=== PATIENT | male | born 1965 | race Caucasian/White ===

== ENCOUNTER 2016-06-24 14:23 | Outpatient (CLI) | payer BC ==
[2014-07-31 19:36] VITALS: BP 149/87
[2016-06-24 15:08] LABS: BASOPHILS % 0.7 (0.0-1.5); EOSINOPHILS % 3.6 % (0.0-6.8); LYMPHOCYTES # 3.8 # k/uL (0.6-4.0); MEAN CORPUSCULAR HEMOGLOBIN 33.4 pg (28.0-34.0); MONOCYTES # 0.4 # k/uL (0.0-0.9); MONOCYTES % 3.9 % (0.0-11.0); NEUTROPHILS # 5.2 # k/uL (1.4-7.7)
[2016-06-24 15:31] LABS: eGFR (African) > 60; eGFR (Non-African) > 60
--- NOTE | 2016-06-24 20:33 | Diagnostic Imaging Report ---
[facility] [address] [facility].[address] [address] Report Submission Date: Jun 24, 2016 3:12:47 PM CDT Patient Study Name: RIAZ CERDA Date: Jun 24, 2016 2:44:25 PM CDT Modality Type: CR Gender: M Description: CHEST : 69 Institution: [facility] Physician: FIDE SCHWAB - OP Chest 2 views History: Chest pain and smoker Findings: Calcified granulomas are present. The lungs are otherwise clear without infiltrate pleural effusion. Heart size and pulmonary vascularity are normal. A mild mid to lower thoracic compression deformity is likely old. Impression: Old granulomatous disease and probably old thoracic compression deformity. Electronically signed on Jun 24, 2016 3:12:47 PM CDT by: Kamran ELIZABETH
== END 2016-06-24 14:24 ==
LOC: LAB 14:23
PROVIDERS: ATTEND Family Medicine
DX: R07.81 Pleurodynia (principal); R10.84 Generalized abdominal pain; E11.9 Type 2 diabetes mellitus without complications
CPT/HCPCS: 36415; 71020; 80053; 83036; 85025

== ENCOUNTER 2016-06-30 08:06 | Outpatient (CLI) | payer BC ==
[2014-07-31 19:36] VITALS: BP 149/87
--- NOTE | 2016-06-30 10:20 | Diagnostic Imaging Report ---
FIDE SCHWAB [facility] [address] [facility] [address] [address] Report Submission Date: Jun 30, 2016 9:13:17 AM CDT Patient Study Name: RIAZ CERDA Date: Jun 30, 2016 8:20:10 AM CDT Modality Type: US Gender: M Description: ABDOMEN COMPLETE : 69 Institution: [facility] Physician: FIDE SCHWAB Ultrasound abdomen complete History: Abdominal pain and nausea Findings: Visualized portions of the pancreas are normal. Moderately increased hepatic parenchymal echogenicity and decreased hepatic through transmission are observed. An indeterminate hypoechoic 3 x 3.1 x 2.7 cm right hepatic lesion is present. The abdominal aorta is normal in caliber. The inferior vena cava is not specifically imaged. A large immobile gallstone is present without gallbladder wall thickening or significant gallbladder distention. The common bile duct measures 3 mm in diameter proximally and is obscured distally. The right kidney measures 10.8 cm in length and the left kidney 10.9 cm. Renal echotexture and morphology is normal. The spleen measures 10.2 cm in maximal dimension. Impression: 1. Indeterminate 3.1 cm right hepatic lesion. Recommend triple phase contrast enhanced abdomen CT for further evaluation. 2. Moderate hepatic steatosis. 3. Large mobile gallstone. Electronically signed on Jun 30, 2016 9:13:17 AM CDT by: Kamran ELIZABETH
== END 2016-06-30 08:08 ==
LOC: RAD 08:06
PROVIDERS: ATTEND Family Medicine
DX: R10.84 Generalized abdominal pain (principal)
CPT/HCPCS: 76700

== ENCOUNTER 2016-07-05 05:46 | Outpatient (CLI) | payer BC ==
[2014-07-31 19:36] VITALS: BP 149/87
--- NOTE | 2016-07-05 14:23 | Diagnostic Imaging Report ---
FIDE SCHWAB - SANTY [facility] [address] [facility] [address] [place] [address]. [id number] Report Submission Date: Jul 05, 2016 8:27:04 AM CDT Patient Study Name: KORINA CERDA Date: Jul 05, 2016 7:33:50 AM CDT Modality Type: CT\SR Gender: M Description: CT ABD/PEL C : 69 Institution: [facility] Physician: FIDE SCHWAB - SANTY CT Abdomen/pelvis with contrast History: ABDOMINAL PAIN FOR MONTHS. HEPATIC LESION SEEN ON ULTRASOUND ON JUNE 30, 2016 Multiple grayscale and color Doppler images of the abdomen are submitted with reconstructions Findings: Comparison: Ultrasound abdomen dated June 30, 2016 Minimal left basilar scarring No free intraperitoneal air Degenerative changes are seen in the thoraco lumbar spine Hepatic steatosis is present. No intrahepatic biliary dilatation. There is a vague 3 x 2.7 cm heterogeneous hypodensity at the inferior right hepatic lobe on coronal series 601 image 64. Hyperdensity adjacent to the gallbladder is likely related to hepatic shunt vascularity The spleen demonstrates calcified granulomas. Pancreas, left adrenal gland are within normal limits. Right adrenal gland demonstrates a 2 cm adenoma Both kidneys enhance symmetrically, right renal inferior pole cyst is noted, no hydronephrosis bilaterally Left renal inferior pole small cysts is seen Left kidney demonstrates interpolar region prominent corticomedullary tissue likely column of Dmitry, recommend attention on followup The gallbladder is distended with large gallstone at the neck/proximal body Distended urinary bladder No bowel obstruction. Appendix within normal limits. No localized abscess in the abdomen or pelvis Impression: 1. Hepatic steatosis. The liver is heterogeneous in density. A vague indeterminate heterogeneously hypodense area/ lesion is noted in the inferior right hepatic lobe adjacent to the right kidney, coronal series 601 image 64, sagittal series 602 image 34, not well defined, this likely correspond to the lesion seen on ultrasound, there is some internal vascularity. This needs further evaluation with a liver protocol MRI 2. Gallstone 3. Bilateral small renal cysts. No hydronephrosis. The left kidney demonstrates interpolar region prominent Column of Dmitry, recommend attention on followup imaging 4. Appendix is within normal limits. Prostatic calcification 5. Thoracolumbar degenerative changes with compression deformities at L1, L2 Electronically signed on Jul 05, 2016 8:27:04 AM CDT by: Tram Gaona Hepatic lesion is not clearly seen on the axial images. Right adrenal adenoma Addendum electronically signed by Tram Gaona on July 05, 2016 8:32:54 AM CDT MTDD
== END 2016-07-05 05:47 ==
LOC: RAD 05:46
PROVIDERS: ATTEND Family Medicine
DX: K76.89 Other specified diseases of liver (principal)
CPT/HCPCS: 74177; A9698; Q9966

== ENCOUNTER 2017-01-03 15:32 | Outpatient (CLI) | payer BC ==
[2014-07-31 19:36] VITALS: BP 149/87
== END 2017-01-03 15:33 ==
LOC: LAB 15:32
PROVIDERS: ATTEND Family Medicine
DX: E11.9 Type 2 diabetes mellitus without complications (principal); E03.8 Other specified hypothyroidism
CPT/HCPCS: 36415; 83036; 84443

== ENCOUNTER 2018-01-10 12:35 | Emergency (ER) | payer BC ==
--- NOTE | 2018-01-10 12:43 | ED Physician Documentation ---
Low Back Pain - HPI Stated Complaint: back pain Chief Complaint: Low Back Pain/ Injury Additional Information: Patient presents to ED with a 24 hour history of mid-back pain and left posterior hip pain. He states the pain started yesterday morning around 10am while he was at work. 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 He denies any injury or fall. He reports a variable pain from 0-10 depending on what activities he is doing. He is unable to bed over, twist side to side or laterally bend either way. He states the only thing that makes it better it to lay on his right side. He denies loss of bowel or bladder control. History: other (has history of chronic pain) Onset: hours (24) Duration: continues in ED Recent Injury: No Context: lifting Where: work Severity: moderate Quality: sharp Associated Symptoms: denies: fever, chills, incontinence, difficulty walking Worsened By:: upright position, movement to RT flexion, movement to LT flexion, other (bending over) Relieved By: supine (on right side) - ROS CONST: no problems CVS/RESP: denies: chest pain EYES/ENT: none MS/SKIN/LYMPH: none Neuro/Psych: none - PAST HX Past History: denies: back injury Other History: denies: aortic aneurysm Surgeries/Procedures: none Allergies/Adverse Reactions: Allergies Allergy/AdvReac Type Severity Reaction Status Date / Time No Known Allergies Allergy Verified 01/10/18 13:22 Home Medications: Ambulatory Orders Medication Instructions Recorded Naproxen 500 mg PO Q12 PRN #60 tablet MDD 01/10/18 1500 mg Tizanidine HCl 4 mg PO Q8 PRN #90 tablet 01/10/18 - SOCIAL HX Smoking History: cigarettes, greater than 1 pack/day Alcohol Use: occasionally Drug Use: none - FAMILY HX Family History: none - VITAL SIGNS Vital Signs: Vital Signs Temp Pulse Resp BP Pulse Ox 149/87 07/31/14 20:16 - REVIEWED ASSESSMENTS Nursing Assessment Reviewed: Yes Vitals Reviewed: Yes Progress - Results/Orders Results/Orders: 3 views of the thoracic spine History: CHRONIC BACK PAIN No similar comparison studies Thoracic spine alignment is preserved. There is loss of height of the T7 through T10 vertebral bodies. Upper thoracic vertebral bodies are not well seen secondary to osseous overlap. Multilevel degenerative changes Impression: 1. Multilevel degenerative changes. No dislocation 2. Anterior wedging, loss of height and compression deformities of the 8th through the 10 thoracic vertebral bodies, chronicity is not known. Single frontal view of the pelvis History: Left hip pain NO KNOWN INJURY No comparison studies A single frontal view of the pelvis is provided, this limits evaluation of the left hip No evidence of acute fracture or dislocation of the visualized pelvic bones. There is flattening of the left femoral head, osteophyte at the left acetabulum Impression: 1. No evidence of acute fracture or dislocation of the visualized pelvic bones 2. Flattening of the left femoral head noted which may be due to degenerative change. Degenerative changes left hip. Dedicated left hip MR may be done as needed Electronically signed on Jan 10, 2018 1:32:07 PM CDT by: Tram Gaona 3 views of the lumbar spine History: Chronic back pain No similar comparison studies Spine alignment is preserved. There is loss of height, anterior wedging and compression deformity of L1 through L3 vertebral bodies. Multilevel degenerative changes are present. Loss of intervertebral disc space at L1-2, L2-3. Lower lumbar spine facet arthropathy is present Impression: 1. Multilevel degenerative changes. 2. Anterior wedging, loss of height and compression deformities of the L1 through L3 vertebral bodies. Intervertebral disc space narrowing at multiple levels. Facet arthropathy lower lumbar spine. MR evaluation is suggested. Electronically signed on Jan 10, 2018 1:35:11 PM CDT by: Tram Gaona ED Results Lab/Radiology - Orders Orders: ED Orders Category Date Time Status L SPINE 2 OR 3 VIEWS [RAD] Stat Exams 01/10/18 Ordered PELVIS AP 1 OR 2 VIEWS [RAD] Stat Exams 01/10/18 Ordered T SPINE 3 VIEWS [RAD] Stat Exams 01/10/18 Ordered Low Back Pain/Injury - Physical Exam General Appearance: no acute distress, alert EENT: MATILDE Neck: non-tender Resp/CVS: chest non-tender, breath sounds nml, heart sounds nml Abdomen: non-tender Back: vertebral point-tendernes (point tenderness to left of T12), other (Range of motion seems markedly decreased during exam, however, ambulation is unaffected ) Straight Leg Raising: Negative Left, Negative Right Neuro/Psych: oriented x3 Skin: warm/dry, normal color Extremities: non-tender, normal range of motion, no evidence of injury Discharge Clincal Impression: Back pain Qualifiers: Back pain location: low back pain Chronicity: acute Back pain laterality: left Sciatica presence: without sciatica Qualified Code(s): M54.5 - Low back pain Osteoarthritis of spine Qualifiers: Spinal region: thoracolumbar Spinal osteoarthritis complication: without myelopathy or radiculopathy Qualified Code(s): 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 Walking improves back pain so walk 5- 10 minutes every 2-3 hours. Drink plenty of water. Condition: Good Disposition: 01 HOME, SELF-CARE Decision to Admit: NO Date of Decison to Admit: 01/10/18 Decision Time: 13:37
[2018-01-10 13:22] VITALS: BP 177/99
--- NOTE | 2018-01-10 14:53 | Diagnostic Imaging Report ---
CYNTHIA DEVINE [facility] [address] [facility] [address] [address] Report Submission Date: Jan 10, 2018 1:35:11 PM CDT Patient Study Name: KORINA CERDA Date: Jan 10, 2018 12:55:14 PM CDT Modality Type: DX Gender: M Description: SPINE : 69 Institution: [facility] Physician: CYNTHIA DEVINE 3 views of the lumbar spine History: Chronic back pain No similar comparison studies Spine alignment is preserved. There is loss of height, anterior wedging and compression deformity of L1 through L3 vertebral bodies. Multilevel degenerative changes are present. Loss of intervertebral disc space at L1-2, L2-3. Lower lumbar spine facet arthropathy is present Impression: 1. Multilevel degenerative changes. 2. Anterior wedging, loss of height and compression deformities of the L1 through L3 vertebral bodies. Intervertebral disc space narrowing at multiple levels. Facet arthropathy lower lumbar spine. MR evaluation is suggested. Electronically signed on Jan 10, 2018 1:35:11 PM CDT by: Tram ELIZABETH
--- NOTE | 2018-01-10 14:54 | Diagnostic Imaging Report ---
CYNTHIA DEVINE [facility] [address] [facility] [address] [address] Report Submission Date: Jan 10, 2018 1:29:35 PM CDT Patient Study Name: KORINA CERDA Date: Jan 10, 2018 12:53:55 PM CDT Modality Type: DX Gender: M Description: SPINE : 69 Institution: [facility] Physician: CYNTHIA DEVINE 3 views of the thoracic spine History: CHRONIC BACK PAIN No similar comparison studies Thoracic spine alignment is preserved. There is loss of height of the T7 through T10 vertebral bodies. Upper thoracic vertebral bodies are not well seen secondary to osseous overlap. Multilevel degenerative changes Impression: 1. Multilevel degenerative changes. No dislocation 2. Anterior wedging, loss of height and compression deformities of the 8th through the 10 thoracic vertebral bodies, chronicity is not known. Electronically signed on Jan 10, 2018 1:29:35 PM CDT by: Tram ELIZABETH
--- NOTE | 2018-01-10 14:55 | Diagnostic Imaging Report ---
CYNTHIA DEVINE [facility] [address] [facility] [address] [address] Report Submission Date: Jan 10, 2018 1:32:07 PM CDT Patient Study Name: KORINA CERDA Date: Jan 10, 2018 12:51:10 PM CDT Modality Type: DX Gender: M Description: PELVIS : 69 Institution: [facility] Physician: CYNTHIA DEVINE Single frontal view of the pelvis History: Left hip pain NO KNOWN INJURY No comparison studies A single frontal view of the pelvis is provided, this limits evaluation of the left hip No evidence of acute fracture or dislocation of the visualized pelvic bones. There is flattening of the left femoral head, osteophyte at the left acetabulum Impression: 1. No evidence of acute fracture or dislocation of the visualized pelvic bones 2. Flattening of the left femoral head noted which may be due to degenerative change. Degenerative changes left hip. Dedicated left hip MR may be done as needed Electronically signed on Jan 10, 2018 1:32:07 PM CDT by: Tram ELIZABETH
== END 2018-01-10 13:44 | disposition home or self-care (01) ==
LOC: ED 12:35
DX: M54.5 Low back pain (principal); M47.815 Spondylosis without myelopathy or radiculopathy, thoracolumbar region
CPT/HCPCS: 72072; 72100; 72170

== ENCOUNTER 2018-02-22 15:44 | Outpatient (CLI) | payer BC ==
[2018-02-22 16:43] LABS: eGFR (Non-African) > 60
== END 2018-02-22 15:45 ==
LOC: LAB 15:44
PROVIDERS: ATTEND Family Medicine
DX: E11.9 Type 2 diabetes mellitus without complications (principal); E03.9 Hypothyroidism, unspecified
CPT/HCPCS: 36415; 80053; 80061; 83036; 84443

== ENCOUNTER 2019-02-12 17:15 | Outpatient (CLI) | payer BC | END 2019-02-12 17:20 | LOC: LAB 17:15 | PROVIDERS: ATTEND Family Medicine | DX: E11.9 Type 2 diabetes mellitus without complications (principal) | CPT/HCPCS: 36415; 83036 ==